=== PATIENT | male | born 1960 | race Caucasian/White ===

== ENCOUNTER → 2025-01-26 07:06 | Outpatient (REF) | payer MEDICARE, OTHER, SELFPAY | LOC: RAD 07:06 | PROVIDERS: ATTENDING PHYSICIAN Nurse Practitioner Family; FAMILY PHYSICIAN Internal Medicine | DX: Z00.00 Encounter for general adult medical examination without abnormal findings (principal); I10 Essential (primary) hypertension; Z71.85 Encounter for immunization safety counseling; Z12.11 Encounter for screening for malignant neoplasm of colon; J30.2 Other seasonal allergic rhinitis; E78.2 Mixed hyperlipidemia; Z12.5 Encounter for screening for malignant neoplasm of prostate; Z01.89 Encounter for other specified special examinations; R73.01 Impaired fasting glucose; R16.0 Hepatomegaly, not elsewhere classified; Z87.891 Personal history of nicotine dependence; J45.20 Mild intermittent asthma, uncomplicated | CPT/HCPCS: 76700; 76770 ==